=== PATIENT | female | born 1990 | race Caucasian/White ===

== ENCOUNTER 2023-07-22 12:44 | Outpatient (CLI) | payer OTHER, SELFPAY ==
[2023-07-22 19:03] LABS: Chlamydia DNA Amplified* NOT DETECTED (No Detected); GC DNA Amplified* NOT DETECTED (No Detected)
== END 2023-07-22 12:45 | disposition home or self-care (01) ==
PROVIDERS: PCP Physician Assistant Medical; Visit Provider Physician Assistant Medical
DX: N76.0 Acute vaginitis (principal)
CPT/HCPCS: 87109; 87491; 87591

== ENCOUNTER 2023-12-08 09:26 | Outpatient (CLI) | payer OTHER, SELFPAY | END 2023-12-08 09:27 | disposition home or self-care (01) | LOC: NFLDREF 12-09 06:51 | PROVIDERS: PCP Physician Assistant Medical; Referring Provider Physician Assistant Medical; Visit Provider Physician Assistant Medical | DX: L90.0 Lichen sclerosus et atrophicus (principal); N94.6 Dysmenorrhea, unspecified | CPT/HCPCS: 80053; 82306; 82533; 82627; 82670; 82728; 83001; 83002; 83036; 83090; 83520; 83525; 83540; 83550; 84144; 84146; 84270; 84402; 84403; 84432; 84439; 84443; 84480; 84481; 84482; 86141; 86376; 86800 ==